=== PATIENT | female | born 1965 | race Caucasian/White ===

== ENCOUNTER → 2018-01-21 | Day surgery (SDC) | payer MEDICARE, OTHER ==
[~2018-01-21] MED LIST: ASPIRIN81 M2; COREG CR20 MG; COUMADIN PO; COUMADIN6 MG PO; CRESTOR20 MG PO; DOXEPIN 10 MG C10 M1 PO; EFFIENT10 MG PO; IBUPROFEN 800800 MG PO; INSULIN SYRING1 EA57 MC; KLONOPIN1 MG PO; LASIX 40 MG TAB40 M2 PO; LIPITOR40 MG; LISINOPRIL10 MG; NEXIUM40 MG PO; PLAVIX 75 MG TA75 M1; TRULICITY1.5 MG/0.5 SUBQ; VALIUM5 MG PO; VICODIN 5-5001 EACH PO; ZANTAC 150MG T150 MG PO
--- NOTE | ~2018-01-21 | PROC ---
[address] [address] PROCEDURE REPORT Name: ROSALIO JACKSON Room: [facility]#: [id number] Admission: 01/21/18 Attend Phys: Michelle Chavez MD Discharge: Date of : 63 Report #: [id number] THIS REPORT FOR: //name// For GI report, please see the Provation report in Perceptive 7 content. By: 0710Medical Records Staff VAL /NATY
[2018-01-21 07:46] LABS: HEMATOCRIT 43.9 % (37.0-47.0); HEMOGLOBIN 14.4 gm/dL (12.0-15.0); MCH 27.4 pg (26.0-34.0); MCHC 32.7 g/dL (28.0-37.0); MCV 83.9 fL (80.0-100.0); MPV 7.3 fl. (7.2-11.1); RBC 5.23 mil/uL (4.20-5.00); RDW-CV 22.3 % (10.5-14.5); WBC 4.6 thou/uL (4.0-11.0)
[2018-01-21 07:56] LABS: CALCIUM 9.4 mg/dL (8.5-10.1); CREATININE 0.7 mg/dL (0.6-1.3); POTASSIUM 3.1 mmol/L (3.5-5.1)
[2018-01-21 08:01] LABS: ALBUMIN 3.8 g/dL (3.4-5.0); TOTAL BILIRUBIN 0.4 mg/dL (<0.1-1.0); TOTAL PROTEIN 7.8 g/dL (6.4-8.2)
--- NOTE | 2018-01-21 18:13 | EKG ---
[place] [address] ELECTROCARDIOGRAM REPORT Name: ROSALIO JACKSON Room: [facility]#: [id number] Admission: 01/21/18 Attend Phys: Michelle Chavez MD Discharge: Date of : 63 Report #: [id number] THIS REPORT FOR: //name// [facility] Test Date: 2018-01-21 Test Time: 07:57:06 Pat Name: ROSALIO JACKSON Department: Room: Gender: F Application Assistant: : 1965 Requested By: Michelle Chavez Order Number: [id number] Reading MD: Joseph Christianson Measurements Intervals [place] Rate: 96 P: 49 TX: 149 QRS: 9 QRSD: 100 T: 143 QT: 372 QTc: 471 Interpretive Statements Sinus rhythm LVH with secondary repolarization abnormality No previous ECG available for comparison Electronically Signed On 01-21-2018 18:13:33 CDT by Joseph Christianson [email or web address] <ELECTRONICALLY SIGNED> By: Joseph Christianson MD, [facility] 01/21/18 [id number] [id number] Joseph Christianson MD, FACC /EPI
--- NOTE | 2018-01-24 15:07 | PATH ---
[facility] [address] [place] [address] PATHOLOGY RPT PROCEDURE Name: JFAGATAROSALIO [id number] Admission: 01/21/18 Date of : 63 Discharge: Report #: [id number] Path Case #: [id number] [facility] Accession Number: [id number] . 01 Material submitted: . PART A: DUODENAL BIOPSY PART B: GASTRIC BIOPSY FOR GASTRITIS PART C: DESCENDING COLON POLYP . 01 Clinical history: . Anemia, blood in stool . 02 Diagnosis: A. Duodenal biopsy: - Normal small intestinal/duodenal mucosa. . B. Gastric biopsy for gastritis: - Moderate chronic gastritis suggesting reactive gastropathy (chemical gastritis), negative for Helicobacter pylori organisms and dysplasia. . C. Descending colon polyp: - Tubular adenoma, negative for high-grade dysplasia. . (KAM:alise; 01/22/2018) MBR/01/22/2018 . 02 Electronically signed: . Junior Hernandez MD, Pathologist NPI- [id number] . 01 Gross description: . A. Received in formalin labeled "Rosalio Martinez, duodenal biopsy," are 5 segments of britton soft tissue measuring 1.1 x 0.9 x 0.3 cm in aggregate dimensions and ranging from 0.2 to 0.5 cm in maximum dimension. The specimen is submitted entirely in cassette A1. . B. Received in formalin labeled "Jfagata Rosalio, gastric biopsy for gastritis," are 4 segments of britton soft tissue measuring 1.5 x 0.9 x 0.2 cm in aggregate dimensions and ranging from 0.2 to 0.6 cm in maximum dimension. The specimen is submitted entirely in cassette B1. . C. Received in formalin labeled "Rosalio Martinez, descending colon polyp," are multiple segments of britton soft tissue admixed with vegetative material measuring 2.6 x 0.9 x 0.2 cm in aggregate dimensions. The specimen is filtered and entirely submitted in cassette C1. (TSD; 01/21/2018) TOB/TOB . [address] [place] [address] PATHOLOGY RPT PROCEDURE Name: ROSALIO MARTINEZ Kanu Room: [facility].#: [id number] Admission: 01/21/18 Date of : 63 Discharge: Report #: [id number] Path Case #: [id number] Pathologist provided ICD-10: K29.50, D12.4 . 02 CPT . 424112, 753575, 710614 Specimen Comment: A courtesy copy of this report has been sent to Specimen Comment: [phone], , . Specimen Comment: Report sent to ,DR SIN / DR YE Specimen Comment: A duplicate report has been generated due to demographic updates. Performed at: 01 [facility] [address], [place], [place] [id number] MD Myles Gregorio MD Phone: [phone] Performed at: 02 [facility] [address], [place], [place] [id number] MD Junior Hernandez MD Phone: [phone]
== END | disposition home or self-care (01) ==
LOC: M.SUR 07:08
PROVIDERS: Internal Medicine Gastroenterology
DX: D12.4 Benign neoplasm of descending colon (principal); K64.8 Other hemorrhoids; K29.50 Unspecified chronic gastritis without bleeding; K44.9 Diaphragmatic hernia without obstruction or gangrene; I10 Essential (primary) hypertension; E78.5 Hyperlipidemia, unspecified; I25.2 Old myocardial infarction; E11.9 Type 2 diabetes mellitus without complications; K21.9 Gastro-esophageal reflux disease without esophagitis; F41.9 Anxiety disorder, unspecified; Z79.899 Other long term (current) drug therapy; Z95.1 Presence of aortocoronary bypass graft; Z88.8 Allergy status to other drugs, medicaments and biological substances; Z98.890 Other specified postprocedural states